=== PATIENT | female | born 1935 | race Caucasian/White ===

== ENCOUNTER 2017-11-11 09:18 | Observation (INO) ==
[2017-11-11] MEDS ORDERED: Ipratropium/Albuterol Neb 3 ML ONE (09:31)
[2017-11-11 10:29] LABS: Basophils % 0.2 %; Eosinophils # 0.1 K/mcL (0.0-0.6); Eosinophils % 0.9 %; Hematocrit 26.5 % (35.3-44.9); Hemoglobin 7.9 g/dL (11.5-15.4); Immature Granulocytes % 1.3 % (0-4); Lymphocytes # 0.9 K/mcL (0.6-4.6); Lymphocytes % 9.7 %; Mean Corpuscular HGB Conc 29.8 g/dL (31.6-35.5); Mean Corpuscular Hemoglobin 27.9 pg (28.0-33.3); Mean Corpuscular Volume 93.6 fL (83.0-100.0); Mean Platelet Volume 9.5 fL (9.4-12.4); Monocytes # 0.4 K/mcL (0.0-1.3); Monocytes % 4.8 %; Neutrophils # 7.4 K/mcL (1.6-8.9); Platelet Count 127 K/mcL (140-400); Red Blood Count 2.83 M/mcL (3.82-4.97); Red Cell Distribution Width 16.8 % (11.5-14.5); Segmented Neutrophils % 83.1 %
--- NOTE | 2017-11-11 10:31 | Emergency Department Note ---
Disposition Clinical Impression: Atypical chest pain, Dyspnea, Acute exacerbation of chronic obstructive airways disease Anemia Qualifiers: Anemia type: unspecified type Qualified Code(s): D64.9 - Anemia, unspecified Disposition: Admitted As Inpatient General Adult HPI - General Chief complaint: ED Shortness of Breath/Dyspnea Stated complaint: COPD Time Seen by Provider: 11/11/17 10:07 Source: patient Limitations: no limitations Nursing Notes Reviewed: Yes Vital Signs Reviewed: Yes - History of Present Illness HPI Narrative: Patient presents today with CC of: CP, dyspnea Patient describes issue began around this morning sometime when she started having chest pain and shortness of breath. She does have a history of breathing difficulties and today started having increasing symptoms when she woke up. Patient states pain that she has in her chest is similar to the pain that she usually has. She has not been coughing up any blood. She has been having some swelling of her lower extremities. She does get short of breath with exertion. Patient states she does have a history of anemia as well. She has not been eating well and has been feeling somewhat fatigued. Pain is in the center portion of her chest not associated with diaphoresis nausea or vomiting. She has been short of breath. Patient was here in the emergency department last week with similar complaints and does not feel she is getting much better. Pain Scale: 3 - Related Data Home Medications Medication Instructions Recorded Confirmed Amlodipine Besylate [Norvasc] 2.5 mg PO BID 05/29/15 11/11/17 Aspirin 81 mg PO DAILY 05/29/15 11/11/17 Enalapril Maleate [Vasotec] 10 mg PO BID 05/29/15 11/11/17 Levalbuterol Neb [Xopenex] 1 aerosol IH TID 05/29/15 11/11/17 Spironolactone [Aldactone] 25 mg PO DAILY 05/29/15 11/11/17 Ferrous Sulfate [Iron] 325 mg PO BID 06/27/17 11/11/17 Albuterol Sulfate 2.5 mg IH Q4HR PRN 10/17/17 11/11/17 Atorvastatin Calcium [Lipitor] 40 mg PO HS 10/17/17 11/11/17 Furosemide [Lasix] 40 mg PO DAILY 10/17/17 11/11/17 HYDROcodone/Acet 7.5/325 mg [[place] 1 tab PO Q6HR PRN 10/17/17 11/11/17 7.5-325 mg] Levothyroxine [Synthroid] 200 mcg PO 0630 10/17/17 11/11/17 Potassium Chloride [K-Tab ER] 20 meq PO DAILY 10/17/17 11/11/17 Previous Rx's Medication Instructions Recorded Budesonide/Formoterol 160/4.5 2 puff IH BIDRESP #1 inhaler 03/31/16 [Symbicort 160/4.5] Clopidogrel [Plavix] 75 mg PO DAILY #30 tablet 03/31/16 Lactobacillus [Culturelle] 2 each PO DAILY #60 cap.sprink 03/31/16 Allergies Allergy/AdvReac Type Severity Reaction Status Date / Time No Known Allergies Allergy Verified 06/27/17 23:14 All systems ED: reviewed and negative except as stated. 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 The patient 's medications, allergies, and medical history was reviewed. Family, Social & Surg histories were reviewed and are not relevant except as noted above in the history of present illness, or below in the respective specific section. I have reviewed and agree with all vital signs synchronously available in EMR at the time of this dictation. Times documented are the time of computer entry, are not necessarily the time the event occurred. At least 10 systems reviewed with patient or surrogate during physical exam and are otherwise negative. Physical EXAM: General ~ Constitutional: Conscious & cooperative , generally healthy elderly appearance Head: NCAT Eyes: Sclera white , conjunctiva clear , PERRL, non-icteric ENT : L Tympanic membrane normal color and landmarks R Tympanic membrane normal color and landmarks Canals are clear without significant drainage , no obstruction or vesicles , pinna and tragus non tender Nose with pink nasal mucosa, nares patent, non tender without bleeding Mouth - mucous membrane moist , pink , no lesions , no trismus Neck - no masses , supple , no cervical spinous process tenderness Pharynx - no exudate , no petechia or obvious lesions , no airway obstruction or stridor Hematologic ~ Lymphatic ~ Immunologic: Lymphadenopathy normal , no petechia , Skin color, nails and pulses unremarkable. Heart ~ Chest: Reg rate , nml Rhythm , nl S1/S2 , no MRG Lungs: Breath sounds equal , clear to auscultation bilaterally , no wheezing, no rales or rhonchi , no CVA tenderness Gastrointestinal ~ Abd: Soft & non tender , BS + in 4 quads , No HSM or masses , no peritoneal signs GenitoUrinary: Deferred Musculoskeletal ~ Back ~ Extremities: Warm and w/o clubbing , cyanosis , or 1+bilat lower ext edema. No point tenderness , good ROM of major joints Neurologic: Cranial nerves grossly intact, good muscle strength , attention good , cooperative , Alert and oriented x4 Psychiatric: Calm , Insight and mood appropriate , Skin: No rashes , good skin turgor , cap refill 2-3 seconds , warm and dry - General Limitations: no limitations General appearance: alert, in no apparent distress Course Vital Signs Temperature 98.0 F 11/11/17 09:19 Pulse Rate 86 11/11/17 09:19 Respiratory Rate 18 11/11/17 09:19 Blood Pressure 80/57 11/11/17 09:19 O2 Sat by Pulse Oximetry 90 11/11/17 09:19 Temperature 98.0 F 11/12/17 05:29 Pulse Rate 95 11/12/17 05:29 Respiratory Rate 18 11/12/17 05:29 Blood Pressure 126/73 11/12/17 05:29 O2 Sat by Pulse Oximetry 93 11/12/17 05:29 Oxygen Delivery Oxygen Delivery Nasal Cannula Medical Decision Making - MDM Narrative Medical decision making narrative: MDM: History and physical exam is consistent with - atypical CP, dyspnea, anemai DDx included multiple etiologies for the symptoms such as - atypical CP, ACS, Pneumonia, pneumothorax, Gerd, AAA, PE XRAYS: No Acute CP disease Critical Care: None Condition and evaluation here was discussed in detail. Labwork, and test results were reviewed with the patient. Patient states she has had the anemia for some time. She was here last week for similar complaints and does not seem that she is getting any better. Patient's lab work indicated a positive d- dimer and chest pain and shortness of breath we will do a CTA to rule out PE, then consider possible admission hospital for further evaluation and treatment. - Lab Data Lab results reviewed: Yes I reviewed the patient's lab results. Result diagrams: 11/12/17 05:10 11/12/17 05:10 Lab Results 11/11/17 11/11/17 11/11/17 Range/Units 10:19 10:19 10:19 WBC 8.9 (4.3-11.1) K/mcL RBC 2.83 L (3.82-4.97) M/mcL Hgb 7.9 L (11.5-15.4) g/dL Hct 26.5 L (35.3-44.9) % MCV 93.6 (83.0-100.0) fL MCH 27.9 L (28.0-33.3) pg MCHC 29.8 L (31.6-35.5) g/dL RDW 16.8 H (11.5-14.5) % Plt Count 127 L (140-400) K/mcL MPV 9.5 (9.4-12.4) fL Immature Gran % 1.3 (0-4) % Seg Neutrophils % 83.1 % Lymphocytes % 9.7 % Monocytes % 4.8 % Eosinophils % 0.9 % Basophils % 0.2 % Neutrophils # 7.4 (1.6-8.9) K/mcL Lymphocytes # 0.9 (0.6-4.6) K/mcL Monocytes # 0.4 (0.0-1.3) K/mcL Eosinophils # 0.1 (0.0-0.6) K/mcL Basophils # 0.0 (0.0-0.2) K/mcL PT 11.8 (9.4-12.1) Seconds INR 1.1 APTT 24.7 L (26.0-36.0) Seconds D-Dimer 624 H (0-500) ng/mLFEU Sodium (136-145) mEq/L Potassium (3.5-4.5) mEq/L Chloride (98-109) mEq/L Carbon Dioxide (19-29) mEq/L BUN (7-20) mg/dL Creatinine (0.57-1.11) mg/dL Est GFR ( Amer) (> 60) Est GFR (Non-Af Amer) (> 60) BUN/Creatinine Ratio (6-26) Glucose (70-99) mg/dL Calculated Osmolality (280-300) Calcium (8.6-10.8) mg/dL Troponin I (0-0.03) ng/mL B-Natriuretic Peptide 104 H (0-100) pg/mL 18 11/11/17 Range/Units 10:19 10:19 WBC (4.3-11.1) K/mcL RBC (3.82-4.97) M/mcL Hgb (11.5-15.4) g/dL Hct (35.3-44.9) % MCV (83.0-100.0) fL MCH (28.0-33.3) pg MCHC (31.6-35.5) g/dL RDW (11.5-14.5) % Plt Count (140-400) K/mcL MPV (9.4-12.4) fL Immature Gran % (0-4) % Seg Neutrophils % % Lymphocytes % % Monocytes % % Eosinophils % % Basophils % % Neutrophils # (1.6-8.9) K/mcL Lymphocytes # (0.6-4.6) K/mcL Monocytes # (0.0-1.3) K/mcL Eosinophils # (0.0-0.6) K/mcL Basophils # (0.0-0.2) K/mcL PT (9.4-12.1) Seconds INR APTT (26.0-36.0) Seconds D-Dimer (0-500) ng/mLFEU Sodium 147 H (136-145) mEq/L Potassium 4.7 H (3.5-4.5) mEq/L Chloride 99 (98-109) mEq/L Carbon Dioxide 38 H (19-29) mEq/L BUN 16 (7-20) mg/dL Creatinine 0.85 (0.57-1.11) mg/dL Est GFR ( Amer) > 60 (> 60) Est GFR (Non-Af Amer) > 60 (> 60) BUN/Creatinine Ratio 19 (6-26) Glucose 106 H (70-99) mg/dL Calculated Osmolality 306 H (280-300) Calcium 9.2 (8.6-10.8) mg/dL Troponin I 0.01 (0-0.03) ng/mL B-Natriuretic Peptide (0-100) pg/mL
[2017-11-11 10:36] LABS: INR 1.1; Prothrombin Time 11.8 Seconds (9.4-12.1)
[2017-11-11 10:39] LABS: Activated Partial Thrombo Time 24.7 Seconds (26.0-36.0)
[2017-11-11 10:44] LABS: BUN/Creatinine Ratio 19 (6-26); Blood Urea Nitrogen 16 mg/dL (7-20); Calcium 9.2 mg/dL (8.6-10.8); Carbon Dioxide 38 mEq/L (19-29); Chloride 99 mEq/L (98-109); Glucose 106 mg/dL (70-99); Osmolality,Calculated 306 (280-300); Potassium 4.7 mEq/L (3.5-4.5); Sodium 147 mEq/L (136-145); eGFR For African Americans > 60 (> 60); eGFR For Non-African Americans > 60 (> 60)
[2017-11-11] MEDS ORDERED: Levofloxacin 500 MG/100 ML 500 MG/100 ML BAG IVPB ONE (14:18)
[2017-11-11] MEDS ORDERED: methylPREDNISolone 125 MG/2 ML VIAL IVP ONE (14:19)
[2017-11-11] MEDS ORDERED: 0.9 % Sodium Chloride 1,000 ML IVC SCH (14:30)
[2017-11-11] MEDS ORDERED: predniSONE 20 MG TABLET PO SCH (15:32)
[2017-11-11] MEDS ORDERED: Albuterol 2.5 MG/3 ML NEBULIZER IH PRN (15:32)
[2017-11-11] MEDS ORDERED: Naloxone 0.4 MG/ML INJ IVP PRN (15:32)
[2017-11-11] MEDS: 0.9 % Sodium Chloride 1,000 ML IVC SCH (17:16)
[2017-11-11] MEDS ORDERED: 0.9 % Sodium Chloride 250 ML ONE (17:58)
[2017-11-11] MEDS ORDERED: Levalbuterol Neb 0.63 MG/3 ML IH SCH (18:00)
[2017-11-11] MEDS ORDERED: *HR* HYDROcodone/Acet 7.5/325 mg TABLET PO SCH (18:00)
--- NOTE | 2017-11-11 18:39 | Internal Med History&Physical ---
Date of Encounter: 11/11/17 Time of Encounter: 19:47 Assessment and Plan (1) Acute exacerbation of chronic obstructive pulmonary disease (COPD) Current visit: No Status: Acute She is admitted for observation and Solu-Medrol oxygen duo nebs Levaquin (2) Hypotension Current visit: Yes Status: Acute Likely due to her illness and anemia she is receiving transfusion. IV fluids. To need to follow Qualifiers: Hypotension type: unspecified hypotension type Qualified Code(s): I95.9 - Hypotension, unspecified (3) DVT prophylaxis Current visit: No Status: Acute LOVENOX (4) CAD (coronary artery disease) Current visit: Yes Status: Acute We will check enzymes 2 but likely her pain is shortness of breath is due to the COPD exacerbation. Qualifiers: Coronary Disease-Associated Artery/Lesion type: [place] artery [place] vs. transplanted heart: [place] heart Associated angina: without angina Qualified Code(s): I25.10 - Atherosclerotic heart disease of [place] coronary artery without angina pectoris (5) Anemia Current visit: No Status: Chronic Hypotensive short of breath tired we will go ahead and transfuse 2 units. Follow her hemoglobin Qualifiers: Anemia type: unspecified type Qualified Code(s): D64.9 - Anemia, unspecified (6) Diastolic CHF Current visit: No Status: Chronic We will watch for fluid overload be given the fact that she is hypotensive we will hold her diuretics and give her IV fluids and continue to follow this her BMP is not extremely elevated. Qualifiers: Congestive heart failure chronicity: chronic Qualified Code(s): I50.32 - Chronic diastolic (congestive) heart failure (7) Hypertension, essential Current visit: No Status: Chronic Is a nonissue right now she is hypotensive holding her blood pressure pills. (8) Hypothyroidism Current visit: No Status: Chronic We will continue her home medication Qualifiers: Hypothyroidism type: acquired Qualified Code(s): E03.9 - Hypothyroidism, unspecified (9) Anxiety Current visit: No Status: Chronic (10) Primary hyperparathyroidism Current visit: No Status: Chronic (11) DNR (do not resuscitate) Current visit: Yes Status: Acute She is a DNR CC arrest orders have been written from the ER. discussed code status again and she does not want to be intubated or cpr Internal Medicine - H&P: HPI Chief complaint: Shortness of breath Admitted From: Home History of present illness: Ms. Stuart is a 82 year old female History of COPD she presented to the emergency room and was slow to turn around she also had hypotension while in the emergency room. She came from home. In the ER she had an elevated d-dimer she did not have a PE on exam she just had COPD changes on her CT scan she has a COPD exacerbations to she will be admitted for levaquin, duo nebs , solU Medrol, oxygen. She also has hypertension that could be in part due to her anemia also due to dehydration she will be given IV fluids and 2 units packed red blood cells. She was anemic she is pending family 7.9 since she is symptomatic we will go ahead and transfuse her.she was tired fo ra shile but not dizzy, she has not had much of an appetite since friday. she had some cp today lasted 30 min. it was while she was here. went away on its own, no diaphoreis, no radiation with it. no change in sob with it. she does not check her bp at home Past Med Surg Social Fam HX - Past Medical History Medical history: arthritis, CHF, COPD, coronary artery disease, CVA, hypertension, osteoporosis, thyroid disease (hypothyroid), TIA, other (gout, vitamin d def,diverticulosis, lung nodule, bed bug infestation) Psychiatric history: no psych history, anxiety - Past Surgical History Surgical History: appendectomy (), carotid endarterectomy (stents left 2009 and cea 12/2012), cataract (2011), hysterectomy (bsp 2009), other ( colonoscopyy 4 polyps 05/29/15) - Social History Smoking Status: Former smoker Smokeless Tobacco Status: No Alcohol use: none Drug use: none - Family History Daughter Adopted: No Family Member Ethnicity: Non- Living Status: Still Living Mother Living Status: Hx Family Cancer: Yes Father Living Status: Hx Family Cardiac Disorders: Yes (htn,cad) Hx Family Endocrine Disorder: Yes (dm2) Internal Medicine - H&P: Meds Amlodipine Besylate [Norvasc] 2.5 mg PO BID 05/29/15 [History] Aspirin 81 mg PO DAILY 05/29/15 [History] Enalapril Maleate [Vasotec] 10 mg PO BID 05/29/15 [History] Levalbuterol Neb [Xopenex] 1 aerosol IH TID 05/29/15 [History] Spironolactone [Aldactone] 25 mg PO DAILY 05/29/15 [History] Budesonide/Formoterol 160/4.5 [Symbicort 160/4.5] 2 puff IH BIDRESP #1 inhaler 03/31/16 [Rx] Clopidogrel [Plavix] 75 mg PO DAILY #30 tablet 03/31/16 [Rx] Lactobacillus [Culturelle] 2 each PO DAILY #60 cap.sprink 03/31/16 [Rx] Ferrous Sulfate [Iron] 325 mg PO BID 06/27/17 [History] Albuterol Sulfate 2.5 mg IH Q4HR PRN 10/17/17 [History] Atorvastatin Calcium [Lipitor] 40 mg PO HS 10/17/17 [History] Furosemide [Lasix] 40 mg PO DAILY 10/17/17 [History] HYDROcodone/Acet 7.5/325 mg [[place] 7.5-325 mg] 1 tab PO Q6HR PRN 10/17/17 [ History] Levothyroxine [Synthroid] 200 mcg PO 0630 10/17/17 [History] Potassium Chloride [K-Tab ER] 20 meq PO DAILY 10/17/17 [History] 3 Allergy/AdvReac Type Severity Reaction Status Date / Time No Known Allergies Allergy Verified 06/27/17 23:14 All Systems PM: A 10-system review of systems was performed and is negative for pertinent findings except as documented above in the HPI. - Constitutional Constitutional: chills, fatigue, no fever(s) - EENT Eyes: no change in vision (but not good) - Cardiovascular Cardiovascular ROS IM: chest pain, no dyspnea, no irregular heart rhythm, no lightheadedness, no palpitations, no syncope - Respiratory Respiratory: cough, dyspnea, wheezing - Gastrointestinal Gastrointestinal: no constipation, no diarrhea, no hematochezia, no loose stools , no melena, no nausea, no vomiting - Genitourinary Genitourinary: no dysuria, no hematuria - Integumentary Integumentary IM: no pruritus, no rash - Neurological Neurological ROS: no dizziness - Endocrine Endocrine IM: fatigue - Constitutional Vitals: Temp Pulse Resp BP Pulse Ox 97.5 F L 80 16 92/55 95 11/11/17 18:24 01/16/18 18:24 11/11/17 18:24 11/11/17 18:24 11/11/17 18:24 General appearance: Present: no acute distress, obese, answers questions appropriately - Head Head exam: Present: atraumatic, normocephalic - Neck Neck exam general surgery: Present: supple, trachea midline - Expanded Neck Exam Neck exam: Present: carotid bruit (bilateral) - Respiratory Respiratory exam: Present: decreased breath sounds, prolonged expiratory phase, wheezes - Cardiovascular Cardiovascular exam: Present: RRR, +S1, +S2 - GI/Abdominal GI/Abdominal exam: Present: distended, normal bowel sounds, soft. Absent: tenderness, no peritoneal signs - Extremities Exam Extremities exam: Present: normal capillary refill, warm. Absent: mottling, pedal edema - Skin Skin exam: Present: dry, warm. Absent: rash Internal Med - H&P Results - Labs CBC & Chem 7: 11/11/17 10:19 11/11/17 10:19 Labs: Cardiac Enzymes 11/11/17 Range/Units 16:35 Troponin I 0.01 (0-0.03) ng/mL
[2017-11-11] MEDS ORDERED: Levalbuterol Neb 0.63 MG/3 ML IH PRN (19:21)
[2017-11-11] MEDS: Budesonide/Formoterol 160/4.5 MDI IH SCH (21:20)
[2017-11-11] MEDS: *HR* HYDROcodone/Acet 7.5/325 mg TABLET PO PRN (23:52)
[2017-11-11] MEDS: methylPREDNISolone 125 MG/2 ML VIAL IVP SCH (23:54)
[2017-11-12] MEDS ORDERED: 0.9 % Sodium Chloride 250 ML ONE (01:19)
[2017-11-12 05:36] LABS: Basophils % 0.2 %; Hematocrit 33.6 % (35.3-44.9); Immature Granulocytes % 2.7 % (0-4); Lymphocytes # 0.3 K/mcL (0.6-4.6); Lymphocytes % 3.8 %; Mean Corpuscular HGB Conc 31.5 g/dL (31.6-35.5); Mean Corpuscular Hemoglobin 28.3 pg (28.0-33.3); Mean Corpuscular Volume 89.6 fL (83.0-100.0); Mean Platelet Volume 10.4 fL (9.4-12.4); Monocytes % 0.5 %; Neutrophils # 6.2 K/mcL (1.6-8.9); Platelet Count 125 K/mcL (140-400); Red Blood Count 3.75 M/mcL (3.82-4.97); Red Cell Distribution Width 15.5 % (11.5-14.5); Segmented Neutrophils % 92.8 %
[2017-11-12 05:40] LABS: Hemoglobin 10.6 g/dL (11.5-15.4)
[2017-11-12 05:46] LABS: BUN/Creatinine Ratio 18 (6-26); Blood Urea Nitrogen 16 mg/dL (7-20); Carbon Dioxide 29 mEq/L (19-29); Chloride 99 mEq/L (98-109); Glucose 178 mg/dL (70-99); Osmolality,Calculated 302 (280-300); Potassium 4.7 mEq/L (3.5-4.5); Sodium 143 mEq/L (136-145); eGFR For African Americans > 60 (> 60); eGFR For Non-African Americans > 60 (> 60)
[2017-11-12] MEDS: *HR* Enoxaparin 40 MG/0.4 ML SYRINGE SQ SCH (06:05)
[2017-11-12] MEDS: 0.9 % Sodium Chloride 1,000 ML IVC SCH (06:37)
[2017-11-12] MEDS: *HR* HYDROcodone/Acet 7.5/325 mg TABLET PO PRN ×3 (06:39→18:16)
[2017-11-12] MEDS: Levofloxacin 250 MG/50 ML 250 MG/50 ML BAG IVPB SCH (08:04)
[2017-11-12] MEDS: Aspirin 81 MG TAB.CHEW PO SCH (08:05)
[2017-11-12] MEDS: methylPREDNISolone 125 MG/2 ML VIAL IVP SCH ×2 (08:05→18:16)
[2017-11-12] MEDS ORDERED: Furosemide 40 MG TABLET PO SCH (09:00)
[2017-11-12] MEDS ORDERED: Spironolactone 25 MG TABLET PO SCH (09:00)
[2017-11-12] MEDS: Budesonide/Formoterol 160/4.5 MDI IH SCH ×2 (10:04→20:07)
--- NOTE | 2017-11-12 12:36 | Electrocardiograph Report ---
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
--- NOTE | 2017-11-12 13:25 | Internal Med Progress Note ---
Date of Encounter: 11/12/17 Time of Encounter: 13:47 - Assessment and plan (1) Acute exacerbation of chronic obstructive pulmonary disease (COPD) Current Visit: Yes Status: Acute Assessment and plan: We will continue Solu-Medrol, oxygen, Levaquin, (2) Hypotension Current Visit: Yes Status: Acute Assessment and plan: Improved with holding her blood pressure medicines blood transfusion and IV fluids Qualifiers: Hypotension type: unspecified hypotension type Qualified Code(s): I95.9 - Hypotension, unspecified (3) DVT prophylaxis Current Visit: Yes Status: Acute Assessment and plan: Lovenox (4) CAD (coronary artery disease) Current Visit: Yes Status: Acute Assessment and plan: troponin were negative 3 Qualifiers: Coronary Disease-Associated Artery/Lesion type: [place] artery [place] vs. transplanted heart: [place] heart Associated angina: without angina Qualified Code(s): I25.10 - Atherosclerotic heart disease of [place] coronary artery without angina pectoris (5) Anemia Current Visit: Yes Status: Chronic Assessment and plan: As improved with the blood transfusion will continue to follow. Get an outpatient hematology referral Qualifiers: Anemia type: unspecified type Qualified Code(s): D64.9 - Anemia, unspecified (6) Diastolic CHF Current Visit: No Status: Chronic Assessment and plan: We will continue to watch she did get IV fluids her blood pressure pills and diuretics are being held due to the hypotension. Qualifiers: Congestive heart failure chronicity: chronic Qualified Code(s): I50.32 - Chronic diastolic (congestive) heart failure (7) Hypertension, essential Current Visit: No Status: Chronic Assessment and plan: not An Issue currently her blood pressure pills are being held due to the hypotension. (8) Hypothyroidism Current Visit: Yes Status: Chronic Assessment and plan: We will continue Home medication Qualifiers: Hypothyroidism type: acquired Qualified Code(s): E03.9 - Hypothyroidism, unspecified (9) Anxiety Current Visit: No Status: Chronic (10) Primary hyperparathyroidism Current Visit: No Status: Chronic (11) DNR (do not resuscitate) Current Visit: Yes Status: Acute - Subjective Interval history: feels better today. less dizzy, breathing better but still with cough and white sputum and wheeze and sob. no n/v, no stool. urinating a lot with the ivf. bp is back up now. no palp - Constitutional Vitals: Temp Pulse Resp BP Pulse Ox 98.1 F 107 18 126/53 87 11/12/17 12:23 11/12/17 12:23 11/12/17 12:23 11/12/17 12:23 11/12/17 12:23 General appearance: Present: no acute distress, obese, answers questions appropriately - Head Head exam: Present: atraumatic, normocephalic - Neck Neck exam general surgery: Present: trachea midline - Respiratory Respiratory exam: Present: decreased breath sounds, prolonged expiratory phase, wheezes - Cardiovascular Cardiovascular exam: Present: RRR, +S1. Absent: systolic murmur - GI/Abdominal GI/Abdominal exam: Present: normal bowel sounds, soft, no peritoneal signs. Absent: guarding, tenderness - Extremities Exam Extremities exam: Present: normal capillary refill, warm. Absent: pedal edema - Skin Skin exam: Present: rash. Absent: dry Internal Medicine: Result - Labs CBC & Chem 7: 11/12/17 05:10 11/12/17 05:10 Labs: Short CBC 11/12/17 Range/Units 05:10 WBC 6.6 (4.3-11.1) K/mcL Hgb 10.6 L D (11.5-15.4) g/dL Hct 33.6 L (35.3-44.9) % Plt Count 125 L (140-400) K/mcL Neutrophils # 6.2 (1.6-8.9) K/mcL BMP 11/12/17 05:10 Sodium 143 Potassium 4.7 H Chloride 99 Carbon Dioxide 29 BUN 16 Creatinine 0.88 Glucose 178 H Calcium 9.0 Cardiac Enzymes 11/11/17 11/11/17 11/12/17 Range/Units 16:35 21:30 05:10 Troponin I 0.01 0.01 0.01 (0-0.03) ng/mL - ABG Interpretation ABG results: PT/INR, D-dimer PT 11.8 Seconds (9.4-12.1) 11/11/17 10:19 D-Dimer 624 ng/mLFEU (0-500) H 11/11/17 10:19 - Impressions Impressions Chest X-Ray 11/12/17 06:00 IMPRESSION: Emphysema with smoking-related obstructive small airways disease. No consolidative pneumonia. D/ / Omid Cabrales / Omid Cabrales Interpreting Provider: Omid Cabrales - VTE Documentation of Mechanical Device: Graduated compression elastic hosiery Consult Discharge Plan - Plan Referrals: Juan Virk CNP [Primary Care Provider] -
[2017-11-13] MEDS: *HR* HYDROcodone/Acet 7.5/325 mg TABLET PO PRN ×2 (00:52→08:06)
[2017-11-13] MEDS: methylPREDNISolone 125 MG/2 ML VIAL IVP SCH ×2 (02:38→08:03)
[2017-11-13] MEDS: *HR* Enoxaparin 40 MG/0.4 ML SYRINGE SQ SCH (05:20)
[2017-11-13 05:50] LABS: Basophils % 0.1 %; Hemoglobin 10.6 g/dL (11.5-15.4); Immature Granulocytes % 1.4 % (0-4); Lymphocytes # 0.4 K/mcL (0.6-4.6); Lymphocytes % 3.8 %; Mean Corpuscular HGB Conc 31.2 g/dL (31.6-35.5); Mean Corpuscular Hemoglobin 28.2 pg (28.0-33.3); Mean Corpuscular Volume 90.4 fL (83.0-100.0); Mean Platelet Volume 10.5 fL (9.4-12.4); Monocytes # 0.1 K/mcL (0.0-1.3); Monocytes % 1.4 %; Platelet Count 132 K/mcL (140-400); Red Blood Count 3.76 M/mcL (3.82-4.97); Red Cell Distribution Width 15.9 % (11.5-14.5); Segmented Neutrophils % 93.3 %
[2017-11-13 06:07] LABS: BUN/Creatinine Ratio 22 (6-26); Blood Urea Nitrogen 23 mg/dL (8-23); Calcium 8.8 mg/dL (8.6-10.3); Carbon Dioxide 39 mEq/L (23-29); Chloride 98 mEq/L (98-107); Glucose 177 mg/dL (70-105); Osmolality,Calculated 306 (280-300); Potassium 4.2 mEq/L (3.5-5.1); Sodium 144 mEq/L (136-145); eGFR For African Americans > 60 (> 60); eGFR For Non-African Americans 51 (> 60)
[2017-11-13 07:02] VITALS: BP 129/82
[2017-11-13] MEDS: Levofloxacin 250 MG/50 ML 250 MG/50 ML BAG IVPB SCH (07:57)
[2017-11-13] MEDS: Aspirin 81 MG TAB.CHEW PO SCH (08:03)
[2017-11-13] MEDS: Budesonide/Formoterol 160/4.5 MDI IH SCH (09:53)
--- NOTE | 2017-11-13 10:58 | Discharge Summary ---
Date of Encounter: 11/13/17 Time of Encounter: 08:15 - Discharge Diagnosis (1) Acute exacerbation of chronic obstructive pulmonary disease (COPD) Priority: Primary Status: Acute Comments: She received Solu-Medrol Levaquin DuoNeb's oxygen she did improve she said she was back to her baseline she was able to move around the room she got a shower she did well with sats she was discharged in a stable condition on a by mouth prednisone taper and by mouth Levaquin. (2) Hypotension Priority: Secondary Status: Acute Comments: Is likely due to anemia and dehydration with a COPD exacerbation and responded well to blood transfusion and IV fluids. We did hold her blood pressure medication it was not restarted except for her diuretic were actually only continued being held so we will continue that at discharge Qualifiers: Hypotension type: unspecified hypotension type Qualified Code(s): I95.9 - Hypotension, unspecified (3) DVT prophylaxis Priority: Secondary Status: Acute Comments: Lovenox (4) CAD (coronary artery disease) Priority: Secondary Status: Acute Comments: Have some chest pain upon presentation in the ER EKG was negative troponins were negative 3 Qualifiers: Coronary Disease-Associated Artery/Lesion type: [place] artery [place] vs. transplanted heart: [place] heart Associated angina: without angina Qualified Code(s): I25.10 - Atherosclerotic heart disease of [place] coronary artery without angina pectoris (5) Anemia Priority: Secondary Status: Chronic Comments: Responded well to blood transfusion she had increased energy decreased shortness of breath. Her hemoglobin remained stable after the transfusion Qualifiers: Anemia type: unspecified type Qualified Code(s): D64.9 - Anemia, unspecified (6) Diastolic CHF Priority: Secondary Status: Chronic Comments: Not an issue this admission she did continue to receive 1 day of diuretics. Qualifiers: Congestive heart failure chronicity: chronic Qualified Code(s): I50.32 - Chronic diastolic (congestive) heart failure (7) Hypertension, essential Priority: Secondary Status: Chronic Comments: Not an issue this admission she had hypotension her blood pressure medications were held except for spironolactone and Lasix. (8) Hypothyroidism Priority: Secondary Status: Chronic Comments: Remained stable on her home medication Qualifiers: Hypothyroidism type: acquired Qualified Code(s): E03.9 - Hypothyroidism, unspecified (9) Anxiety Priority: Secondary Status: Chronic Comments: Was not an issue this admission (10) Primary hyperparathyroidism Priority: Secondary Status: Chronic (11) DNR (do not resuscitate) Priority: Secondary Status: Acute - Discharge Medications Prescriptions: levoFLOXacin [Levaquin] 500 mg PO DAILY #5 tablet predniSONE [PredniSONE] 20 mg PO DAILY #20 tablet Home Medications: Aspirin 81 mg PO DAILY 05/29/15 [History] Levalbuterol Neb [Xopenex] 1 aerosol IH TID 05/29/15 [History] Spironolactone [Aldactone] 25 mg PO DAILY 05/29/15 [History] Budesonide/Formoterol 160/4.5 [Symbicort 160/4.5] 2 puff IH BIDRESP #1 inhaler 03/31/16 [Rx] Clopidogrel [Plavix] 75 mg PO DAILY #30 tablet 03/31/16 [Rx] Lactobacillus [Culturelle] 2 each PO DAILY #60 cap.sprink 03/31/16 [Rx] Ferrous Sulfate [Iron] 325 mg PO BID 06/27/17 [History] Albuterol Sulfate 2.5 mg IH Q4HR PRN 10/17/17 [History] Atorvastatin Calcium [Lipitor] 40 mg PO HS 10/17/17 [History] Furosemide [Lasix] 40 mg PO DAILY 10/17/17 [History] HYDROcodone/Acet 7.5/325 mg [[place] 7.5-325 mg] 1 tab PO Q6HR PRN 10/17/17 [ History] Levothyroxine [Synthroid] 200 mcg PO 0630 10/17/17 [History] levoFLOXacin [Levaquin] 500 mg PO DAILY #5 tablet 11/13/17 [Rx] predniSONE [PredniSONE] 20 mg PO DAILY #20 tablet 11/13/17 [Rx] Allergies/Adverse Reactions: 3 Allergy/AdvReac Type Severity Reaction Status Date / Time No Known Allergies Allergy Verified 06/27/17 23:14 Date of admission: 11/11/17 14:31 Primary care physician: Juan Virk CNP - Patient Status Disposition: Home Health Service Condition: Good Functional capacity at discharge: uses cane/walker Overall status at discharge: patient is progressing back to baseline - Discharge Instructions Instructions: Heart Failure (DC), Hypothyroidism (DC), Chronic Obstructive Pulmonary Disease (DC), Chronic Hypertension (DC), Anemia (GEN) Follow Up With: Juan Virk CNP [Primary Care Provider] - Araceli Covarrubias MD [Partnered Physician] - 11/18/17 1:30 pm - Diet and Activity Activity: increase activity as tolerated, wear oxygen at all times Diet: low fat, low cholesterol Interval History: She presented from home to the emergency room for feeling short of breath tired weak dizzy. She had some chest pain that lasted for a few minutes in the ER her EKG and troponins were negative it resolved on its own she felt better after she got fluids and her blood transfusion she just had not been herself for a while and was really tired fatigued and dizzy she was also had hypotension. The hypotension responded to IV fluids and a blood transfusion. Her energy got better with the blood transfusion. She felt a lot better. She also received Solu-Medrol Levaquin oxygen duo nebs for the COPD exacerbation. By the day of discharge she got up she took a shower she is able to get around her house. She was sent home in a stable condition she is to follow-up in the office she was sent home on by mouth prednisone and by mouth Levaquin. Home health was set up for her as well. Hospital course: Ms. Stuart is a 82 year old female - Time Spent with Patient Total time spent providing and/or coordinating discharge services: - Constitutional Vitals: Temp Pulse Resp BP Pulse Ox 97.7 F 92 16 129/82 97 11/13/17 07:00 11/13/17 07:00 11/13/17 07:00 11/13/17 07:00 11/13/17 07:00 General appearance: Present: no acute distress, obese, answers questions appropriately - Head Head exam: Present: atraumatic, normocephalic - Neck Neck exam general surgery: Present: supple, trachea midline. Absent: lymphadenopathy - Respiratory Respiratory exam: Present: decreased breath sounds, wheezes (much improved) - Cardiovascular Cardiovascular exam: Present: RRR, +S1, +S2. Absent: systolic murmur - GI/Abdominal GI/Abdominal exam: Present: normal bowel sounds, soft, no peritoneal signs. Absent: mass, tenderness - Extremities Exam Extremities exam: Present: warm. Absent: cyanotic, pedal edema - Skin Skin exam: Present: warm. Absent: rash - VTE Documentation of Mechanical Device: Graduated compression elastic hosiery
--- NOTE | 2017-11-13 11:07 | Physician Discharge Referral ---
Home Health/Hosp Referral Info Transfer to: Home Health Provider in Charge Post Discharge: PCP - Diagnosis (1) Acute exacerbation of chronic obstructive pulmonary disease (COPD) Priority: Primary Status: Acute (2) Hypotension Priority: Secondary Status: Acute (3) DVT prophylaxis Priority: Secondary Status: Acute (4) CAD (coronary artery disease) Priority: Secondary Status: Acute (5) Anemia Priority: Secondary Status: Chronic (6) Diastolic CHF Priority: Secondary Status: Chronic (7) Hypertension, essential Priority: Secondary Status: Chronic (8) Hypothyroidism Priority: Secondary Status: Chronic (9) Anxiety Priority: Secondary Status: Chronic (10) Primary hyperparathyroidism Priority: Secondary Status: Chronic (11) DNR (do not resuscitate) Priority: Secondary Status: Acute - Respiratory Orders Smoking Cessation: Smoking cessation has been advised. For more information, call the [employer], Quit Line at [phone]. - Transfer Medications Prescriptions: levoFLOXacin [Levaquin] 500 mg PO DAILY #5 tablet predniSONE [PredniSONE] 20 mg PO DAILY #20 tablet Home Medications: Aspirin 81 mg PO DAILY 05/29/15 [History] Levalbuterol Neb [Xopenex] 1 aerosol IH TID 05/29/15 [History] Spironolactone [Aldactone] 25 mg PO DAILY 05/29/15 [History] Budesonide/Formoterol 160/4.5 [Symbicort 160/4.5] 2 puff IH BIDRESP #1 inhaler 03/31/16 [Rx] Clopidogrel [Plavix] 75 mg PO DAILY #30 tablet 03/31/16 [Rx] Lactobacillus [Culturelle] 2 each PO DAILY #60 cap.sprink 03/31/16 [Rx] Ferrous Sulfate [Iron] 325 mg PO BID 06/27/17 [History] Albuterol Sulfate 2.5 mg IH Q4HR PRN 10/17/17 [History] Atorvastatin Calcium [Lipitor] 40 mg PO HS 10/17/17 [History] Furosemide [Lasix] 40 mg PO DAILY 10/17/17 [History] HYDROcodone/Acet 7.5/325 mg [[place] 7.5-325 mg] 1 tab PO Q6HR PRN 10/17/17 [ History] Levothyroxine [Synthroid] 200 mcg PO 0630 10/17/17 [History] levoFLOXacin [Levaquin] 500 mg PO DAILY #5 tablet 11/13/17 [Rx] predniSONE [PredniSONE] 20 mg PO DAILY #20 tablet 11/13/17 [Rx] Allergies/Adverse Reactions: 3 Allergy/AdvReac Type Severity Reaction Status Date / Time No Known Allergies Allergy Verified 06/27/17 23:14 Certification: Further, I certify that my clinical findings support that this patient is homebound (i.e. absences from home require considerable and taxing effort and are for medical reasons or christianity services or infrequently or short duration when for other reasons) because: oxygen, sob, walker use. Homebound Reason: Patient requires assistance of a person or device to safely leave home (needs walker and oxygen) Attestation: My signature below is to certify that this patient is under my care and that I, or nurse practitioner, or a physician's nurses assistant working with me, has a face-to -face encounter with this patient.
== END 2017-11-13 14:25 | disposition home health service (06) ==
LOC: INPGRE 09:18 → EMEROOGRE 09:18 → INPGRE 15:12
PROVIDERS: ADMIT Family Medicine; ATTEND Family Medicine

== ENCOUNTER 2018-05-02 10:21 | Inpatient (IN) ==
[2018-05-02] MEDS ORDERED: Furosemide 40 MG/4 ML VIAL IVP ONE (10:37)
[2018-05-02] MEDS ORDERED: Nitroglycerin 1 INCH/GM PACKET TP ONE (10:40)
--- NOTE | 2018-05-02 10:52 | Emergency Department Note ---
Disposition Clinical Impression: COPD exacerbation Pneumonia Qualifiers: Pneumonia type: due to unspecified organism Laterality: right Lung location: lower lobe of lung Qualified Code(s): J18.1 - Lobar pneumonia, unspecified organism Anemia Qualifiers: Anemia type: unspecified type Qualified Code(s): D64.9 - Anemia, unspecified Disposition: Admitted As Inpatient Condition: Fair Referrals: Amanda Martinez CNP [Primary Care Provider] - Forms: ED Satisfaction Letter SOB HPI - General Chief Complaint: ED Shortness of Breath/Dyspnea Stated Complaint: PRISCILLA Time Seen by Provider: 05/02/18 10:30 Source: patient, family, EMS Mode of arrival: EMS Nursing Notes Reviewed: Yes Vital Signs Reviewed: Yes - History of Present Illness 83-year-old female presents from home for evaluation of difficulty breathing. Patient recently was residing over the last month in a custodial for rehabilitation related to strength conditioning of her legs after a fall. Patient was found to have possible pneumonia treated at the custodial until of this week. The last 3 days she has been home and has developed increasing shortness of breath. Patient states she is having no chest pain. She denies any fever or chills. She has had some leg swelling which is chronic but has increased in amount. Patient was getting BiPAP at the custodial but has not been using it at home. She has a history of COPD. There has been a history of peripheral vascular disease with no history of any heart issues. She states no vomiting or diarrhea. Patient has a history of occult GI bleeding which she has required blood transfusions in the past. She currently is on iron supplements that she always has black stools - Related Data Home Medications Medication Instructions Recorded Confirmed Aspirin 81 mg PO DAILY 05/29/15 05/02/18 Ferrous Sulfate [Iron] 325 mg PO BID 06/27/17 05/02/18 Atorvastatin [Lipitor] 40 mg PO HS 11/18/17 05/02/18 Levothyroxine Sodium [Synthroid] 300 mcg PO QAM 11/18/17 05/02/18 Potassium Chloride [Klor-Con 20 meq PO DAILY 03/09/18 05/02/18 Sprinkle] Furosemide [Lasix] 20 mg PO DAILY 03/12/18 05/02/18 Previous Rx's Medication Instructions Recorded Clopidogrel [Plavix] 75 mg PO DAILY #30 tablet 03/31/16 HYDROcodone/Acet 7.5/325 mg [[place] 1 tab PO Q6HR PRN 5 Days #10 tablet 03/14/18 7.5-325 mg] Allergies Allergy/AdvReac Type Severity Reaction Status Date / Time No Known Allergies Allergy Verified 03/12/18 13:12 Review of Systems: Constitutional: [Negative for fever and chills.] HENT: [Negative for congestion.] Eyes: [Negative for discharge.] Respiratory: see History of present illness Cardiovascular: See history of present illness Gastrointestinal: [Negative for nausea, vomiting, abdominal pain and diarrhea.] Endocrine: [Negative for excessive thirst,urination] Genitourinary: [Negative for dysuria and frequency.] Musculoskeletal: [Negative for myalgias and arthralgias.] Skin: [Negative for rash.] Neurological: [Negative for dizziness, localized weakness and headaches.] Psychiatric/Behavioral: [Negative for nervous/anxious.] All other systems reviewed and are negative. Past Medical History - Past Medical History Attestation: Yes The following information was validated with the patient. Source: patient Medical history: Reports: arthritis, CHF, COPD, coronary artery disease, CVA, hyperlipidemia, hypertension Surgical history: Reports: appendectomy, hysterectomy Psychiatric history: Reports: no psych history [employer] history: Reports: other - Social History Smoking Status: Former smoker Smokeless Tobacco Status: No Alcohol use: Reports: none Drug use: Reports: none Physical Exam Constitutional: Patient is [alert], elderly and tachypneic and cooperative. . The patient appears symptomatic. HENT: Head: Normocephalic and atraumatic. Right Ear: External ear normal. Left Ear: External ear normal. Nose: Nose normal. Mouth/Throat: Oropharynx is clear and mucous membranes show [good hydration.] Eyes: Conjunctivae and EOM are normal. Pupils are equal, round, and reactive to light. Right eye exhibits [no] discharge. Left eye exhibits [no] discharge. Neck: Trachea is midline, normal range of motion and [phonation normal]. Neck supple. Cardiovascular: [Regular rhythm], S1 normal, S2 normal, normal heart sounds and intact distal pulses. Exam reveals no gallop and no friction rub. No murmur heard. [Capillary refill is brisk.] [Peripheral pulses are 2+] Pulmonary/Chest: Effort increased with audible gurgling No stridor. Mild to moderate tachypnea. Mild respiratory distress. There are [no] decreased breath sounds. There are diffuse rhonchi heard throughout all lung urrutia and some rails. No audible wheezes Abdominal: Soft. [Bowel sounds are normal]. There exhibits [no] distension and [no] mass. There is no hepatosplenomegaly. There is [no tenderness], [no] CVA tenderness. There is [no rigidity, no rebound, no guarding]. Musculoskeletal: Normal range of motion of uninvolved extremities. There exhibits 3+ pitting edema. [ ] Neurological: Patient is alert. Patient displays no atrophy and no tremor. No cranial nerve deficit and exhibits normal muscle tone. Coordination normal grossly. Skin: Skin is warm and dry. No erythema. No rash noted. Psychiatric: Patient has a normal mood and affect. Course Course Narrative: Patient initially was treated for congestive heart failure. However after chest x-ray and BMP be not elevated which was removed.. Patient clearly has evidence of anemia that will need a blood transfusion. Her chest x-ray suggest some lower airspace disease in her right lower lobe. She was on antibiotics for 5 days at the custodial but there was no antibiotics prescribed at time of discharge home. I will go ahead and give her an IV dose of antibiotics. The patient is a DNR and the family has requested that she be admitted here. Patient was discussed with Dr. Brantley for admission. He agrees with admission. We have chosen Levaquin and doxycycline for antibiotic coverage and we will be ordering 2 units of packed red blood cells for her to be transfused. Vital Signs Temperature 98.7 F 05/02/18 10:21 Pulse Rate 100 05/02/18 10:21 Respiratory Rate 05/02/18 10:21 Blood Pressure 139/85 05/02/18 10:21 O2 Sat by Pulse Oximetry 100 05/02/18 10:21 Temperature 98.7 F 05/02/18 10:21 Pulse Rate 100 05/02/18 10:21 Respiratory Rate 05/02/18 10:21 Blood Pressure 139/85 05/02/18 10:21 O2 Sat by Pulse Oximetry 100 05/02/18 10:21 Oxygen Delivery Oxygen Delivery Nasal Cannula Shortness of Breath/Dyspnea - Differential Diagnosis Likely: acute exacerbation of chronic obstructive airways disease - Lab Data Lab results reviewed: Yes I reviewed the patient's lab results. Result diagrams: 05/02/18 10:57 05/02/18 10:57 Lab Results 05/02/18 05/02/18 05/02/18 Range/Units 10:57 10:57 10:57 WBC 11.0 (4.3-11.1) K/mcL RBC 2.14 L (3.82-4.97) M/mcL Hgb 6.4 L (11.5-15.4) g/dL Hct 22.8 L (35.3-44.9) % MCV 106.5 H (83.0-100.0) fL MCH 29.9 (28.0-33.3) pg MCHC 28.1 L (31.6-35.5) g/dL RDW 18.2 H (11.5-14.5) % Plt Count 242 (140-400) K/mcL MPV 9.9 (9.4-12.4) fL Immature Gran % 5.2 H (0-4) % Seg Neutrophils % 77.0 % Lymphocytes % 10.6 % Monocytes % 6.8 % Eosinophils % 0.2 % Basophils % 0.2 % Neutrophils # 8.5 (1.6-8.9) K/mcL Lymphocytes # 1.2 (0.6-4.6) K/mcL Monocytes # 0.8 (0.0-1.3) K/mcL Eosinophils # 0.0 (0.0-0.6) K/mcL Basophils # 0.0 (0.0-0.2) K/mcL Nucleated RBCs/100 WBC 1.0 H (0) /100 WBC Hypochromasia Present A (Not Present) Poikilocytosis 1+ A (Not Present) Anisocytosis 1+ A (Not Present) Macrocytosis Present A (Not Present) PT 11.5 (9.4-12.1) Seconds INR 1.0 APTT 27.2 (26.0-36.0) Seconds ABG pH (7.32-7.45) pH Units ABG pCO2 (35-45) mmHg ABG pO2 (85-104) mmHg ABG HCO3 (21-27) mEq/L ABG Total CO2 (20-26) mEq/L ABG O2 Saturation (95-98) % ABG Base Excess (-2 to 3) mEq/L Sodium 148 H (136-145) mEq/L Potassium 4.2 (3.5-5.1) mEq/L Chloride 99 (98-107) mEq/L Carbon Dioxide 43 H* (23-29) mEq/L BUN 25 H (8-23) mg/dL Creatinine 1.01 (0.60-1.20) mg/dL Est GFR ( Amer) > 60 (> 60) Est GFR (Non-Af Amer) 52 L (> 60) BUN/Creatinine Ratio 25 (6-26) Glucose 111 H (70-105) mg/dL Calculated Osmolality 311 H (280-300) Lactic Acid (0.5-2.2) mmol/L Calcium 8.7 (8.6-10.3) mg/dL Total Bilirubin 0.3 (0.3-1.0) mg/dL Direct Bilirubin 0.1 (0.0-0.2) mg/dL Indirect Bilirubin 0.2 (0.0-1.2) mg/dL AST 14 (13-39) Units/L ALT 18 (7-52) Units/L Alkaline Phosphatase 65 (34-104) Units/L Troponin I < 0.03 (< 0.04) ng/mL B-Natriuretic Peptide (Less than 100) pg/mL Serum Total Protein 6.0 L (6.4-8.9) g/dL Albumin 3.6 (3.5-5.7) g/dL Globulin 2.4 (2.4-3.5) g/dL Albumin/Globulin Ratio 1.5 (1.1-2.2) Person Notif of Crit 05/02/18 05/02/18 05/02/18 Range/Units 10:57 10:57 11:11 WBC (4.3-11.1) K/mcL RBC (3.82-4.97) M/mcL Hgb (11.5-15.4) g/dL Hct (35.3-44.9) % MCV (83.0-100.0) fL MCH (28.0-33.3) pg MCHC (31.6-35.5) g/dL RDW (11.5-14.5) % Plt Count (140-400) K/mcL MPV (9.4-12.4) fL Immature Gran % (0-4) % Seg Neutrophils % % Lymphocytes % % Monocytes % % Eosinophils % % Basophils % % Neutrophils # (1.6-8.9) K/mcL Lymphocytes # (0.6-4.6) K/mcL Monocytes # (0.0-1.3) K/mcL Eosinophils # (0.0-0.6) K/mcL Basophils # (0.0-0.2) K/mcL Nucleated RBCs/100 WBC (0) /100 WBC Hypochromasia (Not Present) Poikilocytosis (Not Present) Anisocytosis (Not Present) Macrocytosis (Not Present) PT (9.4-12.1) Seconds INR APTT (26.0-36.0) Seconds ABG pH 7.32 (7.32-7.45) pH Units ABG pCO2 83 H* (35-45) mmHg ABG pO2 83 L (85-104) mmHg ABG HCO3 42 H (21-27) mEq/L ABG Total CO2 45 H (20-26) mEq/L ABG O2 Saturation 94 L (95-98) % ABG Base Excess 12 H (-2 to 3) mEq/L Sodium (136-145) mEq/L Potassium (3.5-5.1) mEq/L Chloride (98-107) mEq/L Carbon Dioxide (23-29) mEq/L BUN (8-23) mg/dL Creatinine (0.60-1.20) mg/dL Est GFR ( Amer) (> 60) Est GFR (Non-Af Amer) (> 60) BUN/Creatinine Ratio (6-26) Glucose (70-105) mg/dL Calculated Osmolality (280-300) Lactic Acid 2.5 H (0.5-2.2) mmol/L Calcium (8.6-10.3) mg/dL Total Bilirubin (0.3-1.0) mg/dL Direct Bilirubin (0.0-0.2) mg/dL Indirect Bilirubin (0.0-1.2) mg/dL AST (13-39) Units/L ALT (7-52) Units/L Alkaline Phosphatase (34-104) Units/L Troponin I (< 0.04) ng/mL B-Natriuretic Peptide 154 H (Less than 100) pg/mL Serum Total Protein (6.4-8.9) g/dL Albumin (3.5-5.7) g/dL Globulin (2.4-3.5) g/dL Albumin/Globulin Ratio (1.1-2.2) Person Notif of Derek dee - Radiology Data Radiology results reviewed: Yes I reviewed the patient's radiology results. XR/XR chest 1V portable IMPRESSION: Patchy airspace in the right mid to lower lung which may reflect pneumonia in the appropriate clinical setting. Recommend short-term follow-up to ensure resolution. - EKG Data EKG attestation: Yes I reviewed and interpreted this EKG. EKG shows normal: Reports: sinus rhythm, axis, intervals, QRS complexes, ST-T waves Rate: Reports: normal Interpretation: Reports: no acute changes
[2018-05-02 11:11] LABS: Basophils % 0.2 %; Eosinophils % 0.2 %; Hematocrit 22.8 % (35.3-44.9); Hemoglobin 6.4 g/dL (11.5-15.4); Immature Granulocytes % 5.2 % (0-4); Lymphocytes # 1.2 K/mcL (0.6-4.6); Lymphocytes % 10.6 %; Mean Corpuscular HGB Conc 28.1 g/dL (31.6-35.5); Mean Corpuscular Hemoglobin 29.9 pg (28.0-33.3); Mean Corpuscular Volume 106.5 fL (83.0-100.0); Mean Platelet Volume 9.9 fL (9.4-12.4); Monocytes # 0.8 K/mcL (0.0-1.3); Monocytes % 6.8 %; Neutrophils # 8.5 K/mcL (1.6-8.9); Platelet Count 242 K/mcL (140-400); Red Blood Count 2.14 M/mcL (3.82-4.97); Red Cell Distribution Width 18.2 % (11.5-14.5)
[2018-05-02 11:12] LABS: Prothrombin Time 11.5 Seconds (9.4-12.1)
[2018-05-02 11:15] LABS: Activated Partial Thrombo Time 27.2 Seconds (26.0-36.0)
[2018-05-02 11:16] LABS: Anisocytosis 1+ (Not Present); Hypochromasia Present (Not Present); Poikilocytosis 1+ (Not Present)
[2018-05-02 11:16] LABS: ABG Base Excess 12 mEq/L (-2 to 3); ABG HCO3 42 mEq/L (21-27); ABG Oxygen Saturation 94 % (95-98); ABG PCO2 83 mmHg (35-45); ABG PH 7.32 pH Units (7.32-7.45); ABG PO2 83 mmHg (85-104); ABG TCO2 45 mEq/L (20-26)
[2018-05-02 11:17] LABS: Macrocytosis Present (Not Present)
[2018-05-02 11:32] LABS: Alanine Aminotransferase 18 Units/L (7-52); Albumin 3.6 g/dL (3.5-5.7); Albumin/Globulin Ratio 1.5 (1.1-2.2); Alkaline Phosphatase 65 Units/L (34-104); Aspartate Amino Transferase 14 Units/L (13-39); BUN/Creatinine Ratio 25 (6-26); Bilirubin,Direct 0.1 mg/dL (0.0-0.2); Bilirubin,Indirect 0.2 mg/dL (0.0-1.2); Bilirubin,Total 0.3 mg/dL (0.3-1.0); Blood Urea Nitrogen 25 mg/dL (8-23); Calcium 8.7 mg/dL (8.6-10.3); Carbon Dioxide 43 mEq/L (23-29); Chloride 99 mEq/L (98-107); Globulin 2.4 g/dL (2.4-3.5); Glucose 111 mg/dL (70-105); Osmolality,Calculated 311 (280-300); Potassium 4.2 mEq/L (3.5-5.1); Sodium 148 mEq/L (136-145); Troponin I < 0.03 ng/mL (< 0.04); eGFR For African Americans > 60 (> 60); eGFR For Non-African Americans 52 (> 60)
[2018-05-02] MEDS ORDERED: *HR* HYDROcodone/Acet 5/325 mg TABLET PO ONE (11:48)
[2018-05-02] MEDS ORDERED: Levofloxacin 500 MG/100 ML 500 MG/100 ML BAG IVPB ONE (11:53)
[2018-05-02] MEDS ORDERED: Naloxone 0.4 MG/ML INJ IVP PRN (12:16)
[2018-05-02] MEDS ORDERED: *HR* HYDROcodone/Acet 7.5/325 mg TABLET PO PRN (12:16)
[2018-05-02] MEDS ORDERED: Doxycycline 100 MG CAPSULE PO SCH (12:16)
[2018-05-02] MEDS ORDERED: Albuterol 2.5 MG/3 ML NEBULIZER ONE (13:18)
[2018-05-02] MEDS: Albuterol 2.5 MG/3 ML NEBULIZER IH PRN ×3 (13:25→23:17)
[2018-05-02] MEDS ORDERED: 0.9 % Sodium Chloride 250 ML ONE ×2 (13:28→17:44)
--- NOTE | 2018-05-02 16:43 | Internal Med History&Physical ---
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 We will add vancomycin and Zosyn to the Levaquin that was started by the ER doctor. She is currently on 2 L per nasal cannula. We will continue with her usual nebulizer treatments. Her lactic acid was elevated in the ER. We reviewed her CODE STATUS. Despite patient having DNR CCA status, we plan aggressive pneumonia and pulmonary care up until the point of cardiac or respiratory arrest when she is not to have any aggressive intervention as below. (2) Right lower lobe pneumonia Current visit: Yes Status: Acute Right lower lobe pneumonia as discussed above. Qualifiers: Pneumonia type: due to unspecified organism Qualified Code(s): J18.1 - Lobar pneumonia, unspecified organism (3) Acute respiratory failure with hypoxia and hypercapnia Current visit: No Status: Acute Patient has a history of chronic COPD from previous tobacco use. She is now having exacerbation with hypoxia, hypercapnia, cough and sputum production. In the fdc she was to use BiPAP, but apparenty she refused it most of the time. At home she does not want to use it. She will let us know if she is willing to use it here to hospital, but she is not wishing at the present time to use it. She was discharged on prednisone. I will use IV Solu-Medrol as she may have some adrenal insufficiency related to this. (4) Acute exacerbation of chronic obstructive pulmonary disease (COPD) Current visit: Yes Status: Acute History of chronic COPD with acute exacerbation as discussed above. We will continue with aggressive nebulizer treatments and will add IV Solu-Medrol. Oxygenating well with 2 L per nasal cannula. (5) Anemia Current visit: Yes Status: Acute Patient has a history of recurring anemia. She has had guaiac positive stools in the past. She has had for a negative colonoscopy which showed polyps but no active bleeding. No active bleeding noted currently. She is however on Plavix and aspirin due to her carotid artery disease and previous TIA. We will add PPI in case she has occult upper GI bleed. Her hemoglobin is low enough to warrant intervention with blood transfusion. With her history of recurring anemia problems and her sudden onset of hypotension we will plan on 2 units as ordered per the ER physician. Qualifiers: Anemia type: iron deficiency Iron deficiency anemia type: unspecified iron deficiency Qualified Code(s): D50.9 - Iron deficiency anemia, unspecified (6) Hypotension Current visit: Yes Status: Acute Acutely she is having hypotension. Her pressures have been anywhere from 67-86 systolic over 50-60 diastolic. With this she is still awake, conversant. She does have admitting diagnosis of pneumonia which is fdc acquired, elevated lactic acid and suspicion for sepsis noted. She is receiving blood, triple antibiotics, and IV Solu-Medrol as she was recently discharged from the fdc on prednisone. She may have adrenal insufficiency. She is DNR CCA and not have life support intervention. Qualifiers: Hypotension type: other hypotension type Qualified Code(s): I95.89 - Other hypotension (7) Hypertension, essential Current visit: Yes Status: Chronic patient has a history of hypertension. She was discharged from the fdc on amlodipine. It is currently being held because of hypotension. (8) Hypothyroidism Current visit: No Status: Chronic Patient is a history of hypothyroidism chronically and her Synthroid dose was increased recently. Qualifiers: Hypothyroidism type: unspecified Qualified Code(s): E03.9 - Hypothyroidism , unspecified (9) Leg edema Current visit: No Status: Acute Patient has chronic bilateral lower extremity edema. It may be worse now because of her anemia. I do not suspect congestive heart failure as her BNP is not significantly elevated. She has good EF on her echocardiogram. No known coronary artery disease. She did receive Lasix in the ER as he felt she may have CHF, but it is unlikely at this time. (10) DNR (do not resuscitate) Current visit: Yes Status: Acute I have confirmed with the family and patient that she is DNR CCA. No intubation , no CPR, no defibrillation, no life support, no pressor agent or ACL medications. Patient will let us know if she is willing to have BiPAP if needed. (11) DVT prophylaxis Current visit: Yes Status: Acute Patient chronically takes Plavix and aspirin. Right now she has severe anemia and receiving blood transfusion. We will hold off on more aggressive DVT prophylaxis other than pneumatic devices. Internal Medicine - H&P: HPI Chief complaint: "I guess I got pneumonia again" Admitted From: Emergency Dept Plans for Post Hospital Care: Transfer Fdc Care History of present illness: Ms. Stuart is a 83 year old female with known history of hypertension, hypothyroidism, COPD from previous tobacco use, recurring pneumonia and multiple other medical problems. She was previously admitted to [place] with acute respiratory failure secondary to COPD. She was then placed at [facility]. She was therefore deconditioning in skilled care. Daughter states that the patient then was diagnosed with pneumonia was getting Rocephin shots IM. She was discharged to home a few days or a week later. She was not sent home on any antibiotics. She was sent home on prednisone 40 mg daily for 3 days. (I tried to get information from the fdc but no chart or discharge summary was available. I did get some information from the pharmacist ). She was home for about 2 days and had progressive increased dyspnea, cough, congestion, decreased ADLs. She got to the point where she was so short of breath that she had to come to the emergency room. At home she was not using her BiPAP. It took 2 people to change her depends as she is now incontinent of urine. The motion walked was about 8 steps with a walker and assistance. In the ER she was found to be hypoxic, hypercarbic, acidotic, anemic with hemoglobin 6.4 g, lung findings a chest x-ray consistent with pneumonia. Lactic acid was elevated to 2.4. Given those findings, and having been just been discharged from ECF/failed pneumonia treatment, it was recommended that she be admitted to the hospital. Her CODE STATUS was clarified in the ER and again at the bedside with patient and daughter. She is a DNR CCA: no intubation, no CPR, no ACLS medications, " no life support". When I asked about BiPAP options, she said she would think about it and let us know. Past Med Surg Social Fam HX - Past Medical History Medical history: arthritis, COPD (Previous smoker of a pack of cigarettes per day for 40 years and quit 25 years ago), GI bleed (History of heme positive stool. Fairly recent colonoscopy was negative except for polyps), hyperlipidemia, hypertension, osteoporosis, peripheral artery disease (Carotid artery disease and previous left carotid surgery 2012), thyroid disease ( Hypothyroidism), TIA (Known left carotid artery disease), other (History of left carotid artery disease and previous TIA) Additional medical history: IRON DEFICIENCY Psychiatric history: no psych history - Past Surgical History Surgical History: appendectomy, carotid endarterectomy (Left carotid surgery 2012), hysterectomy Additional surgical history: Left carotid artery stent and surgery - Social History Smoking Status: Former smoker (Smoked for 40 years and quit 25 years ago) Smokeless Tobacco Status: No Alcohol use: none Drug use: none Current living situation: Home ( she has been home for 3 days from the [facility]. family cannot take care of her and will be going back to the [facility] after hospitalization. ) - Family History Mother Living Status: Hx Family Cancer: Yes Father Living Status: Hx Family Cardiac Disorders: Yes (htn,cad) Hx Family Endocrine Disorder: Yes (dm2) Daughter Adopted: No Family Member Ethnicity: Non- Living Status: Still Living Internal Medicine - H&P: Meds Aspirin 81 mg PO DAILY 05/29/15 [History] Clopidogrel [Plavix] 75 mg PO DAILY #30 tablet 03/31/16 [Rx] Ferrous Sulfate [Iron] 325 mg PO BID 06/27/17 [History] Atorvastatin [Lipitor] 40 mg PO HS 11/18/17 [History] Levothyroxine Sodium [Synthroid] 300 mcg PO QAM 11/18/17 [History] Potassium Chloride [Klor-Con Sprinkle] 20 meq PO DAILY 03/09/18 [History] Furosemide [Lasix] 20 mg PO DAILY 03/12/18 [History] HYDROcodone/Acet 7.5/325 mg [[place] 7.5-325 mg] 1 tab PO Q6HR PRN 5 Days #10 tablet 03/14/18 [Rx] Amlodipine Besylate 2.5 mg PO DAILY 05/02/18 [History] Fluticasone/Vilanterol [Breo Ellipta 100-25 Mcg INH] 1 each IH DAILY 05/02/18 [ History] Guaifenesin [Mucinex] 600 mg PO BID 05/02/18 [History] Ipratropium Neb [Atrovent Neb] 0.5 mg IH Q6HR 05/02/18 [History] Levalbuterol Neb [Xopenex Neb] 3 ml AER TID 05/02/18 [History] 3 Allergy/AdvReac Type Severity Reaction Status Date / Time No Known Allergies Allergy Verified 03/12/18 13:12 - Constitutional Constitutional: weakness (Generalized weakness and requiring 2 people for assistance in the home), no chills, no fever(s) - EENT Eyes: no change in vision Ears: no ear discharge, no ear pain Nose, mouth and throat: no dry mouth, no neck pain, no sore throat - Cardiovascular Cardiovascular ROS IM: dyspnea, dyspnea on exertion, edema (Chronically has edema in lower extremities. She thinks it is better since she was in the ER.), no chest pain, no diaphoresis, no irregular heart rhythm, no syncope - Respiratory Respiratory: cough (White phlegm production noted.), dyspnea, dyspnea on exertion, wheezing, chest congestion, excessive phlegm production, no hemoptysis - Gastrointestinal Gastrointestinal: no abdominal pain, no constipation, no diarrhea, no vomiting - Genitourinary Genitourinary: urinary incontinence Additional comments: Beach catheter was placed and 1300 mL of yellow to clear urine drained Menstruation: post hysterectomy - Musculoskeletal Additional comments: Daughter reports patient has generalized weakness, takes 2 people to change her depends, it takes 2 people to get her in or out of the reclining chair. She has walked only a few steps at home. No lateralizing weakness. She is a bruise over the dorsum of the left foot and first 3 toes. Unknown how she got this in the fdc. X-rays were negative as taken in the fdc. - Integumentary Additional comments: It is reported she has a yeast type rash under her breasts and under skin folds. Nurse reports buttock areas are reddened but no skin breakdown. She has a bruise in the left foot over the first 3 toes and dorsum of the foot. - Neurological Neurological ROS: weakness (As in history of present illness), no focal weakness , no frequent falls - Psychiatric Psychiatric: no confusion, no depression - Constitutional Vitals: Temp Pulse Resp BP Pulse Ox 98.3 F 98 34 82/50 100 05/02/18 16:16 05/02/18 16:16 05/02/18 16:16 05/02/18 16:16 05/02/18 16:16 General appearance: Present: cooperative, mild distress (A bit of tachypnea. But at times she drifts off to sleep. Able to speak in full sentences. Occasional moist cough.), A&O X 3 - Head Head exam: Present: atraumatic - Eye Eye exam: Present: EOMI. Absent: nystagmus, scleral icterus - ENT ENT exam: Present: mucous membranes moist, TM's normal bilaterally - Neck Neck exam general surgery: Absent: lymphadenopathy, tenderness, thyromegaly - Respiratory Additional comments: Scattered rhonchi. Scattered intermittent end-expiratory wheezes. Faint crackles in the bases. Occasional cough with clear to white sputum. - Cardiovascular Cardiovascular exam: Present: distant heart sounds, RRR, +S1, +S2, systolic murmur (2/6 systolic murmur) - GI/Abdominal GI/Abdominal exam: Present: soft, no peritoneal signs. Absent: mass, tenderness - Extremities Exam Additional comments: Mild pitting edema of ankles and feet. Feet are warm and dry. Left foot shows purple bruise over the first 3 toes and distal dorsal foot area. Good range of motion of the toes. They are not edematous or swollen. Nontender. No obvious fracture. - Neurological Exam Neurological exam: Present: alert, CN II-XII intact, oriented X3, strengths equal and symetr throughout (As tested while in bed.) - Skin Additional comments: Ecchymotic areas on her abdomen from previous Lovenox injections while hospitalized. No hematoma formation. Left lower extremity shows bruising over the left distal dorsal foot and into the first 3 toes. Nurse reports redness of the buttocks without skin breakdown. Family report redness under the breasts and abdominal pannus area treated with powder. Internal Med - H&P Results - Labs CBC & Chem 7: 05/02/18 10:57 05/02/18 10:57 Labs: Labs have been reviewed. - Diagnostic Studies Chest x-ray Additional comments: Chest x-ray shows right lower lobe infiltrate. No significant pulmonary vascular congestion. Possible left pleural effusion. - VTE Documentation of Mechanical Device: Intermittent pneumatic compression device
[2018-05-02] MEDS ORDERED: Vancomycin (wt based) 1,000 MG VIAL IVPB SCH (18:00)
[2018-05-02] MEDS ORDERED: Piperacillin/Tazobactam 3.375 GM in 0.9 % Sodium Chloride Mini Bag 100 ML IVPB SCH (18:00)
[2018-05-02] MEDS ORDERED: Aminoglycoside Consult 1 EACH MC ONE (20:16)
[2018-05-02 20:41] LABS: Bilirubin,Urine Negative (Negative); Blood,Urine Negative (Negative); Clarity,Urine Clear (Clear); Color,Urine Yellow (Yellow); Glucose,Urine (UA) Normal (Normal); Ketones,Urine Negative (Negative); Leukocyte Esterase,Urine Negative (Negative); Nitrite,Urine Negative (Negative); PH,Urine 5.5 pH Units (5.0-8.0); Protein,Urine Negative (Neg-Trace); Urobilinogen,Urine Normal (Normal)
[2018-05-02] MEDS: Piperacillin/Tazobactam 3.375 GM in 0.9 % Sodium Chloride Mini Bag 100 ML IVPB SCH (21:50)
[2018-05-02] MEDS: methylPREDNISolone 125 MG/2 ML VIAL IVP SCH (23:58)
[2018-05-03] MEDS ORDERED: Piperacillin/Tazobactam 3.375 GM in 0.9 % Sodium Chloride Mini Bag 100 ML IVPB SCH
[2018-05-03] MEDS: Piperacillin/Tazobactam 3.375 GM in 0.9 % Sodium Chloride Mini Bag 100 ML IVPB SCH (05:43)
[2018-05-03 05:44] LABS: Hematocrit 31.8 % (35.3-44.9); Mean Corpuscular HGB Conc 30.5 g/dL (31.6-35.5); Mean Corpuscular Hemoglobin 29.9 pg (28.0-33.3); Mean Platelet Volume 10.1 fL (9.4-12.4); Platelet Count 194 K/mcL (140-400); Red Blood Count 3.24 M/mcL (3.82-4.97); Red Cell Distribution Width 18.7 % (11.5-14.5)
[2018-05-03 05:47] LABS: Hemoglobin 9.7 g/dL (11.5-15.4); Mean Corpuscular Volume 98.1 fL (83.0-100.0)
[2018-05-03 05:49] LABS: Prothrombin Time 11.4 Seconds (9.4-12.1)
[2018-05-03 05:52] LABS: Activated Partial Thrombo Time 24.1 Seconds (26.0-36.0)
[2018-05-03 06:00] LABS: Albumin 3.5 g/dL (3.5-5.7); Albumin/Globulin Ratio 1.6 (1.1-2.2); Bilirubin,Direct 0.1 mg/dL (0.0-0.2); Bilirubin,Indirect 0.4 mg/dL (0.0-1.2); Bilirubin,Total 0.5 mg/dL (0.3-1.0); Globulin 2.2 g/dL (2.4-3.5); Total Protein 5.7 g/dL (6.4-8.9)
[2018-05-03 06:26] LABS: BUN/Creatinine Ratio 23 (6-26); Blood Urea Nitrogen 24 mg/dL (8-23); Calcium 8.2 mg/dL (8.6-10.3); Carbon Dioxide 41 mEq/L (23-29); Chloride 99 mEq/L (98-107); Glucose 164 mg/dL (70-105); Osmolality,Calculated 308 (280-300); Potassium 4.5 mEq/L (3.5-5.1); Sodium 145 mEq/L (136-145); eGFR For African Americans > 60 (> 60); eGFR For Non-African Americans 50 (> 60)
[2018-05-03] MEDS: Albuterol 2.5 MG/3 ML NEBULIZER IH PRN ×2 (07:02→11:00)
[2018-05-03] MEDS: methylPREDNISolone 125 MG/2 ML VIAL IVP SCH (08:42)
[2018-05-03] MEDS ORDERED: Furosemide 20 MG TABLET PO SCH (09:00)
[2018-05-03 10:54] LABS: ABG Base Excess 9 mEq/L (-2 to 3); ABG HCO3 41 mEq/L (21-27); ABG Oxygen Saturation 68 % (95-98); ABG PCO2 109 mmHg (35-45); ABG PH 7.18 pH Units (7.32-7.45); ABG PO2 47 mmHg (85-104); ABG TCO2 44 mEq/L (20-26)
[2018-05-03] MEDS ORDERED: Levofloxacin 500 MG/100 ML 500 MG/100 ML BAG IVPB SCH (11:00)
[2018-05-03 11:41] VITALS: BP 124/69
--- NOTE | 2018-05-03 12:05 | Internal Med Progress Note ---
Date of Encounter: 05/03/18 Time of Encounter: 11:42 - Assessment and plan (1) care home-acquired pneumonia Current Visit: Yes Status: Acute Assessment and plan: She is currently on 3 antibiotics. White blood cell count is elevated, but this may also be from steroids contributing to this. No fever. Blood cultures currently no growth. We will try to get a follow-up chest x-ray. (2) Right lower lobe pneumonia Current Visit: Yes Status: Acute Assessment and plan: As above. Follow-up chest x-ray to be done. Qualifiers: Pneumonia type: due to unspecified organism Qualified Code(s): J18.1 - Lobar pneumonia, unspecified organism (3) Acute respiratory failure with hypoxia and hypercapnia Current Visit: Yes Status: Acute Assessment and plan: Currently she is on BiPAP because of drop in pH and increase in PCO2. Her oxygen saturation is now improved. Her blood pressure is now normal. She is more awake. Reiterated again with family that she is not to have intubation or CPR or ACLS intervention. This is per patient and family wishes. We discussed use of BiPAP. It was prescribed in the halfway but patient rarely used to. It was recommended at home but she generally refused to use it. (4) Acute exacerbation of chronic obstructive pulmonary disease (COPD) Current Visit: Yes Status: Acute Assessment and plan: Getting respiratory treatments as well as IV steroids. (5) Anemia Current Visit: Yes Status: Acute Assessment and plan: Anemia has improved since 2 units of blood transfused yesterday. Hemoglobin went from 6.4 to 9.7. Qualifiers: Anemia type: iron deficiency Iron deficiency anemia type: unspecified iron deficiency Qualified Code(s): D50.9 - Iron deficiency anemia, unspecified (6) Hypotension Current Visit: Yes Status: Acute Assessment and plan: She was hypotensive this morning. Now on BiPAP her pressure is now normal. She has refused ACLS medications and DNR CCA is her CODE STATUS. We do not plan to use any pressors. Qualifiers: Hypotension type: other hypotension type Qualified Code(s): I95.89 - Other hypotension (7) Hypertension, essential Current Visit: Yes Status: Chronic (8) Hypothyroidism Current Visit: No Status: Chronic Qualifiers: Hypothyroidism type: unspecified Qualified Code(s): E03.9 - Hypothyroidism , unspecified (9) Leg edema Current Visit: Yes Status: Acute Assessment and plan: Edema has improved. She had over 2000 mL out yesterday. 530 so far today. Her Lasix was held as it was oral. We will consider IV Lasix if her blood pressure stays good and urine output drops. BNP is pending. (10) DNR (do not resuscitate) Current Visit: Yes Status: Acute (11) DVT prophylaxis Current Visit: Yes Status: Acute - Subjective Interval history: Through the night patient was calling out frequently, wanting her pain medication, complaints of being short of breath etc. This morning the patient was very somnolent. Blood gases showed PCO2 109. She is currently on BiPAP. She has mumbled a few things. "I just want to ". - Constitutional Vitals: Temp Pulse Resp BP Pulse Ox 97.4 F L 96 20 124/69 94 05/03/18 11:39 05/03/18 11:39 05/03/18 11:39 05/03/18 11:39 05/03/18 11:39 Exam: Patient is very somnolent. She awakens and tries to pull off the BiPAP mask. Sometimes she states "just let me ". I cannot obtain history from her. - Respiratory Additional comments: Scattered rhonchi in all urrutia. Diminished breath sounds in the bases. No obvious wheezing. Had a breathing treatment 1 hour ago. Currently on BiPAP with settings of 12/6 and oxygen saturation is 94%. - Cardiovascular Cardiovascular exam: Present: RRR, +S1, +S2 - GI/Abdominal GI/Abdominal exam: Present: soft. Absent: tenderness - Extremities Exam Additional comments: She has lower extremity edema which is pitting, indentations from her compression devices are present. The edema is overall improved though. - Neurological Exam Neurological exam: Present: altered Additional comments: Patient is somnolent most the time. She awakens and mumbles and tried to pull off her BiPAP mask. Seems to move all extremities appropriately. Internal Medicine: Result - Labs CBC & Chem 7: 05/03/18 05:40 05/03/18 05:40 Labs: Short CBC 05/03/18 Range/Units 05:40 WBC 15.6 H (4.3-11.1) K/mcL Hgb 9.7 L D (11.5-15.4) g/dL Hct 31.8 L (35.3-44.9) % Plt Count 194 (140-400) K/mcL BMP 05/03/18 05:40 Sodium 145 Potassium 4.5 Chloride 99 Carbon Dioxide 41 H* BUN 24 H Creatinine 1.05 Glucose 164 H Calcium 8.2 L Liver Function 05/03/18 Range/Units 05:40 Total Bilirubin 0.5 (0.3-1.0) mg/dL Direct Bilirubin 0.1 (0.0-0.2) mg/dL AST 18 (13-39) Units/L ALT 20 (7-52) Units/L Alkaline Phosphatase 69 (34-104) Units/L Albumin 3.5 (3.5-5.7) g/dL Urine 05/02/18 Range/Units 18:00 Urine Color Yellow (Yellow) Urine Clarity Clear (Clear) Urine pH 5.5 (5.0-8.0) pH Units Ur Specific [place] 1.020 (1.010-1.025) Urine Protein Negative (Neg-Trace) mg/dL Urine Glucose (UA) Normal (Normal) mg/dL CBC, chemistries and ABGs have been reviewed. White blood cell Likely elevated more because of the steroids. Acidotic, retaining CO2 and now on BiPAP. - ABG Interpretation ABG results: ABG ABG pH 7.18 pH Units (7.32-7.45) L* 05/03/18 10:42 ABG pCO2 109 mmHg (35-45) H* 05/03/18 10:42 ABG pO2 47 mmHg (85-104) L* 05/03/18 10:42 ABG O2 Saturation 68 % (95-98) L 05/03/18 10:42 PT/INR, D-dimer PT 11.4 Seconds (9.4-12.1) 05/03/18 05:40 - VTE Documentation of Mechanical Device: Intermittent pneumatic compression device Consult Discharge Plan - Plan Referrals: Amanda Martinez, STUDIO DIRECTOR [Primary Care Provider] -
[2018-05-03] MEDS ORDERED: *HR* LORazepam 2 MG/ML VIAL IVP ONE (14:32)
--- NOTE | 2018-05-03 14:35 | Event Note ---
Date of Encounter: 05/03/18 Time of Encounter: 14:20 Patient's respiratory status and blood pressure and oxygen saturation improved on BiPAP. She refuses to wear it. She says she wants to . Family is in attendance and they want to convert her from DNR CCA to DNR CC/Comfort Care only. This is been the patient's wishes as documented many times and all of family are in agreement. Her heart rate is starting to get irregular, it sounded like a bigeminy pattern in the 60s. Pulse ox reading is 55-59% on 2 L per nasal cannula. She has diminished breath sounds and having respiratory distress. She did open her eyes when I spoke her name she did not respond otherwise. We will start with Ativan 0.5 IV for comfort as per family request. Accounting Technician in attendance as well. 15:35 PM Update: Patient has not received comfortably after 1 dose of Ativan. Heart rate is in the 80s and regular. She is sleeping soundly. Monitors are being withdrawn. Family is in attendance. Everyone is doing appropriately well.
[2018-05-03] MEDS ORDERED: *HR* LORazepam Oral Conc 2 MG/ML SL PRN (15:09)
[2018-05-03] MEDS ORDERED: MORPHINE SUL Oral CONC 10 MG/0.5 ML ORAL.SYG PO SCH (16:00)
--- NOTE | 2018-05-03 18:52 | Discharge Summary ---
Date of Encounter: 05/03/18 Time of Encounter: 18:49 - Discharge Diagnosis (1) [facility]-acquired pneumonia Priority: Primary Status: Acute Comments: Patient was admitted with pneumonia having been just discharged from the half-way 2 days prior. She was placed on triple antibiotics, intravenous steroids because of her discharge with prednisone from the half-way. However, she had respiratory compromise. She did not want to be on BiPAP. She went from DNR CCA to DNR CC and comfort measures were provided per patient and family request. (2) Right lower lobe pneumonia Priority: Secondary Status: Acute Qualifiers: Pneumonia type: due to unspecified organism Qualified Code(s): J18.1 - Lobar pneumonia, unspecified organism (3) Acute respiratory failure with hypoxia and hypercapnia Priority: Secondary Status: Acute Comments: Patient has had ongoing COPD and was admitted with hypercapnia. This worsened through the night and this morning. BiPAP was initiated when patient was unresponsive, when she awoke she refused any further BiPAP. She was changed from DNR CCA to DNR CC and comfort measures were applied. She a few hours later. (4) Acute exacerbation of chronic obstructive pulmonary disease (COPD) Priority: Secondary Status: Acute (5) Anemia Priority: Secondary Status: Acute Qualifiers: Anemia type: iron deficiency Iron deficiency anemia type: unspecified iron deficiency Qualified Code(s): D50.9 - Iron deficiency anemia, unspecified (6) Hypotension Priority: Secondary Status: Acute Qualifiers: Hypotension type: other hypotension type Qualified Code(s): I95.89 - Other hypotension (7) Hypertension, essential Priority: Secondary Status: Chronic (8) Hypothyroidism Priority: Secondary Status: Chronic Qualifiers: Hypothyroidism type: unspecified Qualified Code(s): E03.9 - Hypothyroidism , unspecified (9) Leg edema Priority: Secondary Status: Acute (10) DNR (do not resuscitate) Priority: Secondary Status: Acute (11) DVT prophylaxis Priority: Secondary Status: Acute Hospital course: Ms. Stuart is a 83 year old female was admitted with pneumonia, likely half-way acquired. See the note above. Patient at 1830 p.m. after she had been placed and palliative type care Discharge discussed with: family - Time Spent with Patient Total time spent providing and/or coordinating discharge services: - Discharge Medications Home Medications: Aspirin 81 mg PO DAILY 05/29/15 [History] Clopidogrel [Plavix] 75 mg PO DAILY #30 tablet 03/31/16 [Rx] Ferrous Sulfate [Iron] 325 mg PO BID 06/27/17 [History] Atorvastatin [Lipitor] 40 mg PO HS 11/18/17 [History] Levothyroxine Sodium [Synthroid] 300 mcg PO QAM 11/18/17 [History] Potassium Chloride [Klor-Con Sprinkle] 20 meq PO DAILY 03/09/18 [History] Furosemide [Lasix] 20 mg PO DAILY 03/12/18 [History] HYDROcodone/Acet 7.5/325 mg [[place] 7.5-325 mg] 1 tab PO Q6HR PRN 5 Days #10 tablet 03/14/18 [Rx] Amlodipine Besylate 2.5 mg PO DAILY 05/02/18 [History] Fluticasone/Vilanterol [Breo Ellipta 100-25 Mcg INH] 1 each IH DAILY 05/02/18 [ History] Guaifenesin [Mucinex] 600 mg PO BID 05/02/18 [History] Ipratropium Neb [Atrovent Neb] 0.5 mg IH Q6HR 05/02/18 [History] Levalbuterol Neb [Xopenex Neb] 3 ml AER TID 05/02/18 [History] Allergies/Adverse Reactions: 3 Allergy/AdvReac Type Severity Reaction Status Date / Time No Known Allergies Allergy Verified 03/12/18 13:12 Date of admission: 05/02/18 12:15 Primary care physician: Amanda Martinez CNP Anticipated date of discharge: 05/03/18 - Constitutional Vitals: Temp Pulse Resp BP Pulse Ox - Patient Status Disposition: - Discharge Instructions - VTE Documentation of Mechanical Device: Intermittent pneumatic compression device
== END 2018-05-03 20:17 | disposition expired | DRG 190 ==
LOC: EMEROOGRE 10:21 → INPGRE 12:15
PROVIDERS: ADMIT Family Medicine; ATTEND Family Medicine